=== PATIENT | female | born 1985 | race Caucasian/White ===

== ENCOUNTER 2016-07-05 18:11 | Emergency (ER) | payer MEDICAID ==
[~2016-07-05] VITALS: Ht 167.6 cm; Wt 83.6 kg
[~2016-07-05 18:11] MED LIST: NO HOME MEDICATIONS
[2016-07-05 18:21] VITALS: BP 136/86; PULSE 96; TEMP 98.4
[2016-07-05] MEDS ORDERED: FLEXERIL 1010 MG/TAB PO (18:49)
[2016-07-05] MEDS ORDERED: PREDNISONE20 MG PO (18:49)
== END 2016-07-05 19:08 | disposition home or self-care (01) ==
LOC: COL.ER 18:11
DX: M54.5 Low back pain (principal); M46.1 Sacroiliitis, not elsewhere classified
CPT/HCPCS: J1885

== ENCOUNTER 2016-07-09 17:20 | Emergency (ER) | payer MEDICAID ==
[~2016-07-09] VITALS: Ht 165.1 cm; Wt 81.8 kg
[~2016-07-09 17:20] MED LIST changes: +FLEXERIL 1010 MG/TAB PO; +PREDNISONE20 MG PO
[2016-07-09 17:23] VITALS: BP 133/83; TEMP 97.5
[2016-07-09] MEDS ORDERED: NORCO 325 MG-51 TAB PO (19:24)
[2016-07-09 19:37] VITALS: PULSE 96
== END 2016-07-09 19:38 | disposition home or self-care (01) ==
LOC: COL.ER 17:20
DX: M46.1 Sacroiliitis, not elsewhere classified (principal)

== ENCOUNTER 2016-07-12 08:14 | Emergency (ER) | payer MEDICAID ==
[~2016-07-12] VITALS: Ht 167.6 cm; Wt 81.8 kg
[~2016-07-12 08:14] MED LIST changes: +NORCO 325 MG-51 TAB PO
[2016-07-12 08:18] VITALS: BP 125/85; PULSE 98; TEMP 99.6
[2016-07-12 09:23] LABS: INFLUENZA B NEGATIVE
== END 2016-07-12 09:30 | disposition home or self-care (01) ==
LOC: COL.ER 08:14
PROVIDERS: Physician Assistant
DX: J11.1 Influenza due to unidentified influenza virus with other respiratory manifestations (principal)

== ENCOUNTER 2016-08-27 21:04 | Emergency (ER) | payer MEDICAID ==
[~2016-08-27] VITALS: Ht 167.6 cm; Wt 77.3 kg
[2016-08-27 21:07] VITALS: TEMP 97.6
[2016-08-27 22:55] LABS: BASO # 0.1 (0.0-0.2); BASO % 0.5 % (0.0-2.0); EOS # 0.2 (0.0-0.7); EOS % 1.4 % (0-4.0); GRAN # 6.6 (1.4-6.5); GRAN % 50.8 % (42.2-75.2); LYMPH # 5.3 (1.2-3.4); LYMPH % 40.5 % (20.0-51.0); MEAN CELL VOLUME 87 fl (80.0-100.0); MEAN CORPUSCULAR HEMOGLOBIN 28 pg (27.0-31.0); MEAN CORPUSCULAR HGB CONC 33 g/dl (33.0-37.0); MEAN PLATELET VOLUME 12.1 fl (7.4-10.4); MONO # 0.9 (0.1-0.6); MONO % 6.6 % (1.7-9.3); PLATELET COUNT 214 K/mm3 (130-400); RED BLOOD COUNT 4.59 M/mm3 (4.10-5.30); REDCELL DISTRIBUTION WIDTH-CV 13.2 % (11.5-14.5)
[2016-08-27 23:05] LABS: ADJUSTED CALCIUM 9.1 mg/dL (8.4-10.2); ALBUMIN 4.1 gm/dL (3.5-5.0); BILIRUBIN,TOTAL 0.5 mg/dL (0.0-1.0); CALCIUM 9.2 mg/dL (8.4-10.2); CREATININE, serum 0.59 mg/dL (0.52-1.25); POTASSIUM 3.7 mmol/L (3.4-5.0); TOTAL PROTEIN 7.4 gm/dL (6.4-8.2)
[2016-08-27 23:05] LABS: PH 6 (5-8); SQUAMOUS EPITHELIAL 0-2 /hpf; URINE APPEARANCE Clear; URINE BACTERIA None Seen /hpf; URINE BILIRUBIN Negative (NEGATIVE); URINE BLOOD Negative (NEGATIVE); URINE COLOR Yellow; URINE GLUCOSE Negative (NEGATIVE); URINE KETONE Negative (NEGATIVE); URINE UROBILINOGEN Negative (NEGATIVE)
[2016-08-28] MEDS ORDERED: ULTRAM 50MG TAB50 MG PO (00:37)
[2016-08-28] MEDS ORDERED: ZOFRAN8 MG PO (00:37)
[2016-08-28 00:46] VITALS: BP 133/80; PULSE 86
== END 2016-08-28 00:49 | disposition home or self-care (01) ==
LOC: COL.ER 21:04
PROVIDERS: Emergency Medicine
DX: R10.31 Right lower quadrant pain (principal); Z87.442 Personal history of urinary calculi
CPT/HCPCS: J1170; J1885; J2405; J7030; Q9967

== ENCOUNTER 2016-09-17 13:18 | Emergency (ER) | payer MEDICAID ==
[~2016-09-17] VITALS: Ht 167.6 cm; Wt 77.3 kg
[~2016-09-17 13:18] MED LIST changes: +ULTRAM 50MG TAB50 MG PO; +ZOFRAN8 MG PO
[2016-09-17 13:19] VITALS: BP 146/92; TEMP 98.1
[2016-09-17] MEDS ORDERED: NORCO 325 MG-51 TAB PO (14:24)
[2016-09-17] MEDS ORDERED: DOXYCYCLINE HY100 MG PO (14:24)
[2016-09-17 14:32] VITALS: PULSE 81
== END 2016-09-17 14:32 | disposition home or self-care (01) ==
LOC: COL.ER 13:18
DX: L03.116 Cellulitis of left lower limb (principal); S80.262A Insect bite (nonvenomous), left knee, initial encounter; W57.XXXA Bitten or stung by nonvenomous insect and other nonvenomous arthropods, initial encounter

== ENCOUNTER 2016-10-01 12:53 | Emergency (ER) | payer MEDICAID ==
[~2016-10-01] VITALS: Ht 167.6 cm; Wt 77.3 kg
[~2016-10-01 12:53] MED LIST changes: +DOXYCYCLINE HY100 MG PO
[2016-10-01 13:04] VITALS: BP 141/85; PULSE 105; TEMP 98
[2016-10-01] MEDS ORDERED: MACROBID 1100 MG/CAP PO (13:37)
[2016-10-01] MEDS ORDERED: PYRIDIUM200 M1 PO (13:37)
[2016-10-01 13:52] LABS: PH 7 (5-8); SQUAMOUS EPITHELIAL None Seen /hpf; URINE APPEARANCE Cloudy; URINE BACTERIA None Seen /hpf; URINE BILIRUBIN Negative (NEGATIVE); URINE BLOOD 3+ (NEGATIVE); URINE COLOR Yellow; URINE GLUCOSE Negative (NEGATIVE); URINE KETONE Negative (NEGATIVE); URINE RBC 20-50 /hpf; URINE UROBILINOGEN Negative (NEGATIVE); URINE WBC None Seen /hpf
[2016-10-01] MEDS ORDERED: ULTRAM 50MG TAB50 MG PO (13:57)
== END 2016-10-01 14:00 | disposition home or self-care (01) ==
LOC: COL.ER 12:53
PROVIDERS: Emergency Medicine
DX: N30.00 Acute cystitis without hematuria (principal)

== ENCOUNTER 2016-10-25 20:12 | Emergency (ER) | payer MEDICAID ==
[~2016-10-25] VITALS: Ht 167.6 cm; Wt 84.1 kg
[~2016-10-25 20:12] MED LIST changes: +MACROBID 1100 MG/CAP PO; +PYRIDIUM200 M1 PO
[2016-10-25 20:17] VITALS: BP 175/87; PULSE 107; TEMP 98.2
[2016-10-25] MEDS ORDERED: NORCO 325 MG-51 TAB PO (21:33)
[2016-10-25] MEDS ORDERED: FLEXERIL 1010 MG/TAB PO (21:33)
== END 2016-10-25 21:50 | disposition home or self-care (01) ==
LOC: COL.ER 20:12
DX: S39.012A Strain of muscle, fascia and tendon of lower back, initial encounter (principal); S16.1XXA Strain of muscle, fascia and tendon at neck level, initial encounter; M62.830 Muscle spasm of back; W01.198A Fall on same level from slipping, tripping and stumbling with subsequent striking against other object, initial encounter; Y92.002 Bathroom of unspecified non-institutional (private) residence as the place of occurrence of the external cause
CPT/HCPCS: J1885; J2360

== ENCOUNTER 2016-12-19 14:05 | Emergency (ER) | payer MEDICAID ==
[~2016-12-19] VITALS: Ht 167.6 cm; Wt 86.4 kg
[2016-12-19 14:10] VITALS: BP 131/80; PULSE 88; TEMP 98.1
[2016-12-19] MEDS ORDERED: PROZAC 10MG10 MG (14:13)
[2016-12-19] MEDS ORDERED: LATUDA20 MG PO (14:13)
[2016-12-19] MEDS ORDERED: FLEXERIL 1010 MG/TAB PO (15:01)
== END 2016-12-19 15:13 | disposition home or self-care (01) ==
LOC: COL.ER 14:05
DX: M54.9 Dorsalgia, unspecified (principal); F17.210 Nicotine dependence, cigarettes, uncomplicated; Z98.890 Other specified postprocedural states; Z98.51 Tubal ligation status
CPT/HCPCS: J1885; J3360

== ENCOUNTER 2019-02-08 12:52 | Emergency (ER) | payer MEDICAID ==
[~2019-02-08] VITALS: Ht 167.6 cm; Wt 96.6 kg
[~2019-02-08 12:52] MED LIST changes: +LATUDA20 MG PO; +PROZAC 10MG10 MG
[2019-02-08 13:09] VITALS: BP 147/92
[2019-02-08] MEDS ORDERED: ESTROGEN PO (13:50)
[2019-02-08] MEDS ORDERED: MEDROL 4MG DOSPA4 MG PO (14:56)
[2019-02-08] MEDS ORDERED: NORCO 325 MG-51 TAB PO (14:56)
[2019-02-08 15:23] VITALS: PULSE 96; TEMP 98.1
== END 2019-02-08 15:23 | disposition home or self-care (01) ==
LOC: COL.ER 12:52
DX: H92.01 Otalgia, right ear (principal); F32.9 Major depressive disorder, single episode, unspecified; Z87.891 Personal history of nicotine dependence; F41.9 Anxiety disorder, unspecified; Z90.710 Acquired absence of both cervix and uterus; Z88.0 Allergy status to penicillin; Z88.5 Allergy status to narcotic agent
CPT/HCPCS: J1885

== ENCOUNTER 2021-01-27 10:25 | Emergency (ER) | payer SELFPAY ==
[~2021-01-27] VITALS: Ht 167.6 cm; Wt 109.1 kg
[~2021-01-27 10:25] MED LIST changes: +ESTROGEN PO; +MEDROL 4MG DOSPA4 MG PO
[2021-01-27 10:36] VITALS: TEMP 98.3
[2021-01-27 11:55] LABS: BASO % 0.2 % (0.0-2.0); GRAN # 3.9 (1.4-6.5); GRAN % 64.4 % (42.2-75.2); HEMATOCRIT 42.7 % (37.0-47.0); HEMOGLOBIN 13.4 g/dl (12.5-16.0); LYMPH # 1.6 (1.2-3.4); LYMPH % 25.8 % (20.0-51.0); MEAN CELL VOLUME 83 fl (80.0-100.0); MEAN CORPUSCULAR HEMOGLOBIN 26 pg (27.0-31.0); MEAN CORPUSCULAR HGB CONC 31 g/dl (33.0-37.0); MEAN PLATELET VOLUME 11.7 fl (7.4-10.4); MONO # 0.5 (0.1-0.6); MONO % 8.9 % (1.7-9.3); PLATELET COUNT 195 K/mm3 (130-400); RED BLOOD COUNT 5.13 M/mm3 (4.10-5.30); REDCELL DISTRIBUTION WIDTH-CV 14.5 % (11.5-14.5)
[2021-01-27 12:00] LABS: ALBUMIN 4.2 gm/dL (3.5-5.0); BILIRUBIN,TOTAL 0.2 mg/dL (0.0-1.0); C-REACTIVE PROTEIN 1.4 mg/dL (0.0-0.9); CALCIUM 9.1 mg/dL (8.4-10.2); CREATININE, serum 0.93 (0.52-1.25); POTASSIUM 3.6 mmol/L (3.4-5.0); TOTAL PROTEIN 7.2 gm/dL (6.4-8.2)
[2021-01-27 12:27] LABS: COLLECTION METHOD CLEAN CATCH
[2021-01-27 12:43] LABS: MUCOUS Present /lpf; PH 5 (5-8); URINE APPEARANCE Cloudy; URINE BACTERIA None Seen /hpf; URINE BILIRUBIN Negative (NEGATIVE); URINE BLOOD Negative (NEGATIVE); URINE COLOR Amber; URINE GLUCOSE Negative (NEGATIVE); URINE KETONE Negative (NEGATIVE); URINE LEUKOCYTE ESTERASE Negative (NEGATIVE); URINE NITRATE Negative (NEGATIVE); URINE PROTEIN(semi-quant) 2+ (NEGATIVE); URINE RBC None Seen /hpf; URINE UROBILINOGEN Negative (NEGATIVE)
[2021-01-27 13:35] VITALS: BP 129/70; PULSE 87
== END 2021-01-27 13:35 | disposition home or self-care (01) ==
LOC: COL.ER 10:25
PROVIDERS: Nurse Practitioner
DX: U07.1 COVID-19 (principal); N39.0 Urinary tract infection, site not specified; Z88.0 Allergy status to penicillin
CPT/HCPCS: J2060; J7030

== ENCOUNTER → 2021-07-05 | Outpatient (CLI) | payer OTHER | LOC: MHCPAIN 14:22 | DX: M53.3 Sacrococcygeal disorders, not elsewhere classified (principal); M54.50 Low back pain, unspecified; M54.32 Sciatica, left side | CPT/HCPCS: G0463 ==

== ENCOUNTER → 2021-07-20 | Outpatient (CLI) | payer OTHER | LOC: MHCPAIN 09:57 | DX: M47.817 Spondylosis without myelopathy or radiculopathy, lumbosacral region (principal); M53.3 Sacrococcygeal disorders, not elsewhere classified | CPT/HCPCS: G0260; J1040; Q9967 ==

== ENCOUNTER → 2021-08-01 | Outpatient (CLI) | payer OTHER | LOC: MHCPAIN 07:58 | DX: M53.3 Sacrococcygeal disorders, not elsewhere classified (principal); M79.18 Myalgia, other site | CPT/HCPCS: G0463 ==

== ENCOUNTER → 2023-09-09 | Outpatient (CLI) | payer OTHER | LOC: MHCPAIN 13:31 | DX: M54.50 Low back pain, unspecified (principal); M53.3 Sacrococcygeal disorders, not elsewhere classified; G57.03 Lesion of sciatic nerve, bilateral lower limbs; M79.18 Myalgia, other site | CPT/HCPCS: G0463 ==

== ENCOUNTER → 2023-10-21 | Outpatient (CLI) | payer OTHER ==
[~2023-10-21] MED LIST changes: +Iohexol 300 - 10 ML VIAL ONE; +Triamcinolone 40 MG/ML 1 ML VIAL ONE
== END ==
LOC: MHCPAIN 12:44
DX: M54.50 Low back pain, unspecified (principal); M53.3 Sacrococcygeal disorders, not elsewhere classified
CPT/HCPCS: J3301; Q9967

== ENCOUNTER → 2023-12-17 | Outpatient (CLI) | payer OTHER ==
[~2023-12-17] MED LIST changes: -Iohexol 300 - 10 ML VIAL ONE; -Triamcinolone 40 MG/ML 1 ML VIAL ONE
== END ==
LOC: MHCPAIN 13:56
DX: M54.50 Low back pain, unspecified (principal); M53.3 Sacrococcygeal disorders, not elsewhere classified; G54.0 Brachial plexus disorders; M54.6 Pain in thoracic spine; M79.18 Myalgia, other site; R51.9 Headache, unspecified
CPT/HCPCS: G0463

== ENCOUNTER 2024-04-22 05:35 | Emergency (ER) | payer OTHER ==
[~2024-04-22] VITALS: Ht 167.6 cm; Wt 106.8 kg
[2024-04-22 05:38] VITALS: BP 157/100; PULSE 100; TEMP 98.5
[2024-04-22] MEDS ORDERED: FLEXERIL 1010 MG/TAB PO (05:50)
[2024-04-22] MEDS ORDERED: NAPROSYN500 MG PO (05:50)
[2024-04-22] MEDS ORDERED: Ketorolac 30 MG/ML VIAL IM ONE (06:00)
== END 2024-04-22 06:15 | disposition home or self-care (01) ==
LOC: COL.ER 05:35
DX: M25.512 Pain in left shoulder (principal); Z90.710 Acquired absence of both cervix and uterus
CPT/HCPCS: J1885